=== PATIENT | female | born 1950 | race Caucasian/White ===

== ENCOUNTER 2016-12-17 06:02 | Day surgery (SDC) | payer OTHER ==
[~2016-12-17] VITALS: Ht 152.4 cm; Wt 60.3 kg
[2016-12-17 06:16] VITALS: BP 115/67
[2016-12-17 11:29] VITALS: BP 123/65
== END 2016-12-17 11:25 | disposition home or self-care (01) ==
LOC: DS 06:02 → OR 09:30 → DS 09:30
PROVIDERS: Ophthalmology
PROC: 08RK3JZ Replacement of Left Lens with Synthetic Substitute, Percutaneous Approach (ICD-10-PCS; principal; 2016-12-17 09:30)
DX: H25.092 Other age-related incipient cataract, left eye (principal); E11.9 Type 2 diabetes mellitus without complications; I10 Essential (primary) hypertension
CPT/HCPCS: 82962; C1780; J2001; J2704; J3490; J7040

== ENCOUNTER → 2017-02-25 | Day surgery (SDC) | payer OTHER ==
[~2017-02-25] VITALS: Ht 144.8 cm; Wt 60.3 kg
[2017-02-25 07:38] VITALS: BP 124/75
[2017-02-25 11:15] VITALS: BP 117/68
== END | disposition home or self-care (01) ==
LOC: DS 06:34 → OR 07:30
PROVIDERS: Ophthalmology
PROC: 08RJ3JZ Replacement of Right Lens with Synthetic Substitute, Percutaneous Approach (ICD-10-PCS; principal; 2017-02-25 07:30)
DX: H25.11 Age-related nuclear cataract, right eye (principal); I27.20 Pulmonary hypertension, unspecified; I44.7 Left bundle-branch block, unspecified; E11.22 Type 2 diabetes mellitus with diabetic chronic kidney disease; N18.3 Chronic kidney disease, stage 3 (moderate); J44.9 Chronic obstructive pulmonary disease, unspecified; E03.9 Hypothyroidism, unspecified; E66.9 Obesity, unspecified; Z68.30 Body mass index [BMI] 30.0-30.9, adult
CPT/HCPCS: 82962; C1780; J2001; J2250; J3010; J3490; J7040